=== PATIENT | male | born 1985 | race Caucasian/White ===

== ENCOUNTER 2021-01-16 08:05 | Emergency (ER) | payer BC, SELFPAY ==
[2021-01-16 08:15] VITALS: BP 139/109; PULSE 87; RESP 16; TEMP 36.8; O2SAT 100
--- NOTE | 2021-01-16 08:34 | ED.BACK ---
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 Patient states he has a shorter couple day history of right scapular shoulder pain that is mild worse with motion, better at rest and began when he awoke. No cough, shortness of breath, no midline neck pain, radiating pain, numbness/weakness, prior injury Related Data Home Medications Medication Instructions Recorded Confirmed dextroamphetamine-amphetamine PO 01/16/21 [Adderall XR] Allergies Allergy/AdvReac Type Severity Reaction Status Date / Time No Known Allergies Allergy Unknown Unverified 10/01/18 13:22 Review of Systems Review of Systems: Narrative: The patient has been informed that they may have pre-hypertension or Hypertension based on a BP reading in the department. I recommend that the patient call the primary care provider listed on their discharge instructions or a physician of their choice this week to arrange follow up for further evaluation of possible pre-hypertension or Hypertension General/Constitutional: No weight loss,fever Eyes: N0: Redness,discharge Ears/Nose/Throat: No: Epistaxis,ear discharge Respiratory: Denies: Hemoptysis Gastrointestinal: No Vomiting, Bleeding-rectal Skin: No Lumps, eruption Neurologic: No Focal Weakness,Sz Hematologic: Denies: Petechiae/Purpura Psychiatric: No: Suicida ideationl All Other Systems: Reviewed and Negative PMFSH Comments At time of signature, agree with nursing past medical, surgical, social and family history. There is no relevant family history pertinent to the presenting complaint Exam Narrative: Exam Narrative: General Appearance: Well appearing,, Conjunctiva clear Mouth/Throat: Normal appearing, Normal lips, Supple no midline tenderness Respiratory: Airway patent Musculoskeletal: Normal strength ( 5/5 : Bi/Tri, ) Spine/Back: Rhomboid muscle tender (with mild decreased range of motion; right scapular border) Skin: Normal color, nontender supraspinatus & supraspinatus mm Neurological: A&O x3, CN II-XII intact, Normal reflexes (symmetric, Bi/Tri) Psychiatric: Normal mood Course Vital Signs Vital signs: Vital Signs Temperature 98.3 F 01/16/21 08:15 Pulse Rate 87 01/16/21 08:15 Respiratory Rate 16 01/16/21 08:15 Blood Pressure 139/109 H 01/16/21 08:15 Pulse Oximetry 100 01/16/21 08:15 Temperature 98.3 F 01/16/21 08:15 Pulse Rate 87 01/16/21 08:15 Respiratory Rate 16 01/16/21 08:15 Blood Pressure 139/109 H 01/16/21 08:15 Pulse Oximetry 100 01/16/21 08:15 Discharge Plan Discharge Clinical Impression: Pain, upper back Patient Disposition: Home, Self-Care Condition: Stable Instructions: Thoracic Back Strain (ED) Prescriptions: New prednisone 20 mg tablet 60 mg PO DAILY Qty: 9 RF: 0 acetaminophen-codeine 300-30 mg tablet 1 - 2 tablet PO HS PRN (Reason: pain) Qty: 10 RF: 0 tramadol 50 mg tablet 50 mg PO TID PRN (Reason: pain) Qty: 15 RF: 1 No Action dextroamphetamine-amphetamine [Adderall XR] 30 mg capsule,extended release 24hr PO RF: 0 Follow-up/Referrals: Fortino,Pb Mota MD [Primary Care Provider] - Stand Alone Forms: Work/School Release IP
== END 2021-01-16 08:42 | disposition home or self-care (01) ==
PROVIDERS: Emergency Provider Emergency Medicine; PCP Family Medicine
DX: M54.6 Pain in thoracic spine (principal)
CPT/HCPCS: 99213; G0463

== ENCOUNTER 2024-11-17 10:48 | Outpatient (CLI) | payer BC, SELFPAY | END 2024-11-17 10:49 | disposition home or self-care (01) | PROVIDERS: PCP Physician Assistant; Visit Provider Physician Assistant | DX: R16.1 Splenomegaly, not elsewhere classified (principal) | CPT/HCPCS: 76700 ==

== ENCOUNTER 2024-11-21 12:48 | Outpatient (CLI) | payer BC, SELFPAY | END 2024-11-21 12:49 | disposition home or self-care (01) | PROVIDERS: PCP Physician Assistant; Visit Provider Physician Assistant | DX: R10.9 Unspecified abdominal pain (principal); R63.4 Abnormal weight loss | CPT/HCPCS: 71046 ==

== ENCOUNTER 2024-11-24 16:42 | Outpatient (CLI) | payer BC, SELFPAY ==
--- OUTSIDE RECORDS SUMMARY | 2024-11-24 17:05 | XMS_ITS | Referral Summary ---
Author Organization [facility] Medical Office Building [address] Address [address] [place] [address] Care Team Providers Care Medical Assistant Prn Name Role Phone Pb Freitas MD Primary Care Provider +1- [phone] Allergies No known active allergies Medications ADDERALL XR 30 mg 24 hr capsule 07/21/2018 Activ e dextroamphetamine- amphetamine (ADDERALL) 20 mg tablet 07/21/2018 Active Active Problems No known active problems Social History Tobacco Use Types Packs/Day Years Used Date Smoking Tobacco: Never Smokeless Tobacco: Never Personal Safety Answer Date Recorded Getting School Help Needed Not on file 12/05 Sex and Gender Information Value Date Recorded Sex Assigned at Not on file 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 Gender Identity Not on file Sexual Orientation Not on file Last Filed Vital Signs Vital Sign Reading Time Taken Comments Blood Pressure 150/83 12/02/2018 1:53 PM CDT Pulse 101 12/02/2018 1:53 PM CDT Temperature - - Respiratory Rate - - Oxygen Saturation - - Inhaled Oxygen Concentration - - Weight 111.1 kg (245 lb) 12/02/2018 1:53 PM CDT Height 193 cm (6' 4 ) 12/02/2018 1:53 PM CDT Body Mass Index 29.82 12/02/2018 1:53 PM CDT Plan of Treatment Not on file Insurance [employer] Care Teams Medical Assistant Prn Relationship Specialty Start Date End Date Pb Freitas MD [facility] [place] [address] PCP - General Family Medicine 08/02/18
--- OUTSIDE RECORDS SUMMARY | 2024-11-24 17:05 | XMS_ITS | Clinical Summary ---
Author Organization [facility] Address [address] [place] [phone] Phone Care Team Providers Care Insurance Account Executive Name Role Phone Provider, Unknown Primary Care Provider Unavaila ble Allergies No known active allergies Medications amphetamine-dextro amphetamine (ADDERALL XR) 30 MG CAPSULE SR 24 HR 07/21/2018 Active Active Problems No known active problems Immunizations Immunization Administration Dates Next Due Influenza, Seasonal, Injectable, Undefined 08/04 TDAP Vaccine 11/20/2015,08/04/2013 Social History Tobacco Use Types Packs/Day Years Used Date Smoking Tobacco: Never Smokeless Tobacco: Never Sex and Gender Information Value Date Recorded Sex Assigned at Not on file 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 Gender Identity Not on file Sexual Orientation Not on file Last Filed Vital Signs Vital Sign Reading Time Taken Comments Blood Pressure 128/70 09/12/2020 1:53 PM TOOL DISPATCHER Pulse 67 09/12/2020 1:53 PM TOOL DISPATCHER Temperature 36.4 C (97.6 F) 09/12/2020 1:53 PM TOOL DISPATCHER Respiratory Rate 20 08/06/2020 4:43 PM TOOL DISPATCHER Oxygen Saturation 99% 09/12/2020 1:53 PM TOOL DISPATCHER Inhaled Oxygen Concentration - - Weight - - Height - - Body Mass Index - - Plan of Treatment Health Maintenance Due Date Last Done Comments Hepatitis C Virus (HCV) Screening 1984 Hepatitis B Immunization (1 of 3 - 19+ 3-dose series) 11/28/2003 Influenza Immunization (#1) 2024 SARS-COV-2 Immunization ( season) 2024 11/23/2020 Respiratory Syncytial Virus (RSV) Immunization (Adult) (1 - 1-dose 75+ series) 11/28/2059 DTaP/Tdap/Td Immunization Discontinued 2015, 08/04/2013 Meningococcal Immunization (ACWY) Aged Out No longer eligible based on patient's age to complete this topic Pneumococcal Immunization Combined Aged Out No longer eligible based on patient's age to complete this topic Rotavirus Immunization Aged Out No lo nger eligible based on patient's age to complete this topic Insurance [facility] Care Teams Insurance Account Executive Relationship Specialty Start Date End Date Provider, Unknown UNKNOWN PCP - General 08/06/20
--- OUTSIDE RECORDS SUMMARY | 2024-11-24 17:05 | XMS_ITS | Clinical Summary ---
Author Organization [facility] Medical Office Building B Address [address] [place] [address] Care Team Providers Care Clinical Research Director Name Role Phone Pb Freitas MD Primary Care Provider +1- [phone] Allergies No known active allergies Medications ADDERALL XR 30 mg 24 hr capsule 07/21/2018 Activ e dextroamphetamine- amphetamine (ADDERALL) 20 mg tablet 07/21/2018 Active Active Problems No known active problems Surgical History Surgery Date Site/Laterality Comments TONSILECTOMY, ADENOIDECTOMY, BILATERAL MYRINGOTOMY AND TUBES Medical History Medical History Date Comments Known health problems: none ADHD (attention deficit hyperactivity disorder) Family History Medical History Relation Name Comments Cancer Other Stroke Other Relation Name Status Comments Other Social History Tobacco Use Types Packs/Day Years Used Date Smoking Tobacco: Never Smokeless Tobacco: Never Personal Safety Answer Date Recorded Getting School Help Needed Not on file 12/05 Sex and Gender Information Value Date Recorded Sex Assigned at Not on file 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
[2024-11-24 17:15] LABS: Alanine Aminotransferase 47 U/L (6-50); Albumin Level 4.9 g/dL (3.5-5.1); Alkaline Phosphatase 95 U/L (38-126); Anion Gap 9 mmol/L (4-12); Aspartate Amino Transferase 43 U/L (17-59); Bilirubin,Total 1.9 mg/dL (0.2-1.3); Blood Urea Nitrogen 15 mg/dL (9-20); CRP < 0.5 mg/dL (<1.0); Calcium 9.3 mg/dL (8.4-10.2); Carbon Dioxide 27 mmol/L (22-30); Chloride 103 mmol/L (98-107); Estimated Glomerular Filt Rate > 60; Glucose 97 mg/dL (65-110); Potassium 4.1 mmol/L (3.4-5.0); Sodium 139 mmol/L (137-145)
[2024-11-24 17:21] LABS: Prothrombin Time 13.1 Seconds (11.1-14.7)
[2024-11-24 17:35] LABS: Erythrocyte Sedimentation Rate 5 mm/hr (0-20)
[2024-11-28 14:48] LABS: Immunoglobulin A 155 mg/dL (47-310); TTG IGA AB <1.0 U/mL
== END 2024-11-24 16:43 | disposition home or self-care (01) ==
LOC: ANHLAB 16:43
PROVIDERS: PCP Physician Assistant; Visit Provider Nurse Practitioner
DX: R63.4 Abnormal weight loss (principal); R68.81 Early satiety; R63.0 Anorexia
CPT/HCPCS: 36415; 80053; 82248; 82784; 84443; 85610; 85652; 86038; 86039; 86140; 86364

== ENCOUNTER 2024-11-25 13:31 | Outpatient (NON) | payer BC, SELFPAY ==
--- OUTSIDE RECORDS SUMMARY | 2024-11-25 13:47 | XMS_ITS | Clinical Summary ---
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 Gender Identity Not on file Sexual Orientation Not on file Last Filed Vital Signs Vital Sign Reading Time Taken Comments Blood Pressure 128/70 09/12/2020 1:53 PM GRAIN OILSEED OR PASTURE FARM WORKER Pulse 67 09/12/2020 1:53 PM GRAIN OILSEED OR PASTURE FARM WORKER Temperature 36.4 C (97.6 F) 09/12/2020 1:53 PM GRAIN OILSEED OR PASTURE FARM WORKER Respiratory Rate 20 08/06/2020 4:43 PM GRAIN OILSEED OR PASTURE FARM WORKER Oxygen Saturation 99% 09/12/2020 1:53 PM GRAIN OILSEED OR 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
--- OUTSIDE RECORDS SUMMARY | 2024-11-25 13:47 | XMS_ITS | Referral Summary ---
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
--- OUTSIDE RECORDS SUMMARY | 2024-11-25 13:47 | XMS_ITS | Clinical Summary ---
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
== END 2024-11-25 13:32 | disposition home or self-care (01) ==
LOC: ANHLAB 13:31
PROVIDERS: PCP Physician Assistant; Visit Provider Nurse Practitioner
DX: R63.4 Abnormal weight loss (principal); R68.81 Early satiety; R63.0 Anorexia
CPT/HCPCS: 82653; 83993; 87045; 87177; 87209; 87269; 87427; 87449

== ENCOUNTER 2024-12-02 13:17 | Outpatient (CLI) | payer BC, SELFPAY ==
--- NOTE | ~2024-12-02 | CT_ITS ---
Clinical Indication: Abnormal weight loss CT Scan of the Chest, Abdomen, and Pelvis with Contrast: Technique: Contiguous sections were acquired throughout the chest, abdomen, and pelvis after intraven ous administration of 100 cc of Omnipaque 350. Dose reduction technique was used on this scan by magalys sidhu automated exposure control and iterative reconstruction technique. The dose-length product (DL P) was 1029.57 mGy-cm. Findings: There is no evidence of any significant mediastinal, hilar or axillary lymphadenopathy. The mediastin al soft tissues appear normal. There is no evidence of pleural or pericardial effusion. The lungs are clear. No pulmonary nodules or infiltrates are noted. The liver, spleen, pancreas, gallbladder, adrenals and kidneys are within normal limits. No evidence of aortic aneurysm. No lymphadenopathy. Questionable mild wall thickening descending and sigmoid colon versus underdistention. No bowel obstr uction. No abscess. Urinary bladder is unremarkable. No pelvic mass seen. No ascites. Impression: Questionable mild wall thickening descending and sigmoid colon versus underdistention. Correlate for any possibility of infectious/inflammatory colitis. Reviewed, dictated and finalized at [facility]. Impression: Questionable mild wall thickening descending and sigmoid colon versus underdist ention. Correlate for any possibility of infectious/inflammatory colitis.
[2024-12-02 13:40] LABS: Estimated Glomerular Filt Rate > 60
== END 2024-12-02 13:18 | disposition home or self-care (01) ==
LOC: GOSHIMG 13:18
PROVIDERS: PCP Nurse Practitioner; Visit Provider Nurse Practitioner
DX: R63.4 Abnormal weight loss (principal); R68.81 Early satiety; R63.0 Anorexia
CPT/HCPCS: 71260; 74177; Q9967

== ENCOUNTER 2024-12-12 01:17 | Day surgery (SDC) | payer BC, SELFPAY ==
[2024-12-07 13:38] VITALS: BMI 23.8
--- OUTSIDE RECORDS SUMMARY | 2024-12-12 01:20 | XMS_ITS | Clinical Summary ---
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
--- OUTSIDE RECORDS SUMMARY | 2024-12-12 01:20 | XMS_ITS | Data Portability ---
Author Organization [facility] [employer] [facility], Main Office Address [address] [place] [address] Assessment No assessment recorded. Plan of Treatment Reminders Order Date Submit Date Provider Last Modified By Organization Details Last Modified Time Details Appointments None recorded. Lab amylase + lipase, serum [address] (Lab), [address] [place], [address], 5 11:10:17 CMP, serum or plasma 2024 025 [facility] (Lab), [address] [place], [address], 5 22:02:38 lipase, serum or plasma 2024 025 [facility] (Lab), [address] [place], [address], 5 22:02:43 hemoglobin A1C, fingerstic k 2024 025 [facility], [address] [place] [address], [address], 5 14:21:16 CMP, serum or plasma [address] (Lab), [address] [place], [address], 5 11:10:16 T4, free, serum 2024 025 [facility] (Lab), [address] [place], [address], 5 22:02:41 TSH, serum or plasma [address] (Lab), [address] [place], [address], 5 11:10:16 CBC w/ auto diff 2024 025 [facility] (Lab), [address] [place], [address], 5 22:02:39 urinalysis , dipstick, reflex micro [address] (Lab), [address] [place], [address], 5 11:10:17 glucose, fingerstic k, blood [address] [facility], [address] [place], [address], 5 11:10:17 amylase, serum or plasma 2024 025 [facility] (Lab), [address] [place], [address], 5 22:02:42 vitamin D3, 25-hydroxy , serum [address] (Lab), [address] [place], [address], 4 08:08:14 vitamin B12 + folate, serum or blood [address] (Lab), [address] [place], [address], 4 08:08:14 TSH, serum or plasma [address] (Lab), [address] [place], [address], 4 08:08:13 vitamin D, 25-hydroxy , total, serum [address] (Lab), [address] [place], [address], 4 08:08:13 lipid panel, serum 2023 024 [facility] (Lab), [address] [place], [address], 4 09:54:47 CMP, serum or plasma [address] (Lab), [address] [place], [address], 4 08:08:13 CK (creatine kinase), total, serum [address] (Lab), [address] [place], [address], 4 08:08:13 CBC w/ auto diff [address] (Lab), [address] [place], [address], 4 08:08:13 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 Please eval and treat. Thank you..famil y history pancreatic cancer. Please call patient to schedule an appointmen t. Thank you. 2024 025 NOLVIA Maldonado MD, [address] [facility] [address], [place], [address], 5 11:02:41 Procedures None recorded. Surgeries None recorded. Imaging US, abdomen [address] (Imaging), [address] [facility] [address], [place], [address], 5 12:41:18 XR, chest, 2 view [address] (Imaging), [address] [facility], [place], [address], 5 16:13:57 XR, chest, 2 view [id number] (Imaging), [address] [facility] [address], [place], [address], 4 08:51:42 Medication Orders Adderall XR 30 mg capsule,ex tended release 2024 025 [facility], [address] [place], [address], 5 15:17:55 Adderall 20 mg tablet 2024 025 [facility] [address], [address] [place], [address], 5 15:17:54 amlodipine 2.5 mg tablet [email or web address] [facility] [address], [address] [place], [address], 5 12:31:57 cyanocobal eden (vit B-12) 1,000 mcg sublingual tablet 2024 025 [facility] [address], [address] [place], [address], 5 16:10:57 losartan 100 mg tablet 2023 024 [facility][id number], [address] [place], [place], [id number], 15:53:07 amlodipine 2.5 mg tablet 2023 [facility] #[id number], [address] [facility], [place], [id number], 15:53:06 Adderall 20 mg tablet 2023 [facility]28045, [address] [facility], [place], [place], [id number], 15:56:57 losartan 100 mg tablet 2023 [facility] [address], [address] [place], [address], 13:00:29 Patient TargetsNo targets recorded. Patient Instructions Encounter Date Encounter Id Patient Instructions Last Modified By Organization Details Last Modified Time 03/15/2024 [id number] recheck BP on ow n ; reviewed salty foods to avoid , walk, which he does [email or web address] Not available 03/20/2024 17:12:21 07/21/2024 [id number] He will check BP at work and at home . has been taking BP pills at night , felt cold at work when he took them in the mornings , but misses a lot of doses ........ [email or web address] Not available 07/21/2024 16:02:08 10/25/2024 [id number] recheck BP on own [email or web address] Not avai lable 10/28/2024 22:47:20 11/15/2024 [id number] wear a jock stra p . no heavy lifting . 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 Please eval and treat. Thank you..family history pancreatic cancer. Please call patient to schedule an appointment. Thank you. Referring Physician: Goyo Richardson, Family Medicine, Encounter Date: 11/15/2024 Results Created Date Observation Date Name Description Value Unit Range Abnormal Flag Note LastModifiedBy Organization Detail LastModifiedTime 08/06/2008/07/2023 LIPID PANEL (REFL ) cholesterol, total 171 mg/dL <200 normal Not Available [address] [address] [place], [address], 08/07/2023 07:24:54 08/06/20 23 08/07/2023 LIPID PANEL (REFL ) HDL cholesterol 55 mg/dL > or = 40 normal Not Available [facility] [address] [address] [place], [address], 08/07/2023 07:24:54 08/06/2008/07/2023 LIPID PANEL (REFL ) triglyceride s 83 mg/dL <150 normal Not Available [address] [address] [place], [address], 08/07/2023 07:24:54 08/06/20 23 08/07/2023 LIPID PANEL (REFL ) LDL-choleste rol 99 mg/dL _(millicent c) normal Refer ence range : <100 Teresa able range <100 mg/dL for prima ry preve ntion ; <70 mg/dL for patie nts with CHD or diabe tic patie nts with > or = 2 CHD risk facto rs. LDL-C is now calcu lated using the [facility]ange n[facility] kins kenanu jhonatan n, which is a valid ated novel teeo ilana renteria r accur acy than the Fried juarez equat ion in the estim ation of LDL-C . Solange barone SS et al. NIC. 2013; 310(1 9): 2061- 2068 (http ://ed ucati on.Qu Tahira viramontesFlurrys. com/f aq/FA Q164) Not Available [facility] [address] [address] , [place], [address], 08/07/2023 07:24:54 08/06/20 23 08/07/2023 LIPID PANEL (REFL ) chol/HDLC ratio 3.1 (calc ) <5.0 normal Not Available [facility] [address] [address] [place], [address], 08/07/2023 07:24:54 08/06/2008/07/2023 LIPID PANEL (REFL ) non HDL cholesterol 116 mg/dL _(millicent c) <130 normal For patie nts with diabe michael plus 1 major ASCVD risk facto r, treat ing to a non-H DL-C goal of <100 mg/dL (LDL- C of <70 mg/dL ) is consi dered a thera peuti c optio n. Not Available [address], [address], 08/07/2023 07:24:54 08/06/2008/07/2023 COMPR EHENS BREE METAB OLIC PANEL glucose 93 mg/dL 65-99 normal Fasti ng refer ence inter migel Not Available [address], [address], 08/07/2023 07:24:55 08/06/20 23 08/07/2023 COMPR EHENS BREE METAB OLIC PANEL urea nitrogen (BUN) 9 mg/dL 7-25 normal Not Available [address], [address], 08/07/2023 07:24:55 08/06/20 23 08/07/2023 COMPR EHENS BREE METAB OLIC PANEL creatinine 1.01 mg/dL 0.60-1 .26 normal Not Available [address], [address], 08/07/2023 07:24:55 08/06/20 23 08/07/2023 COMPR EHENS BREE METAB OLIC PANEL eGFR 98 mL/mi n/1.7 3m2 > or = 60 normal Not Available [address] [address] [place], [address], 08/07/2023 07:24:55 08/06/20 23 08/07/2023 COMPR EHENS BREE METAB OLIC PANEL BUN/creatini ne ratio SEE NOTE: (calc ) 6-22 Not Repor esequiel: BUN and Creat inine are withi n refer ence range . Not Available [address] [address] [place], [address], 08/07/2023 07:24:55 08/06/20 23 08/07/2023 COMPR EHENS BREE METAB OLIC PANEL sodium 140 mmol/ L 135-14 6 normal Not Available [address] [address] [place], [address], 08/07/2023 07:24:55 08/06/20 23 08/07/2023 COMPR EHENS BREE METAB OLIC PANEL potassium 4.2 mmol/ L 3.5-5. 3 normal Not Available [address], [address], 08/07/2023 07:24:55 08/06/20 23 08/07/2023 COMPR EHENS BREE METAB OLIC PANEL chloride 104 mmol/ L 98-110 normal Not Available [address] [address] [place], [address], 08/07/2023 07:24:55 08/06/20 23 08/07/2023 COMPR EHENS BREE METAB OLIC PANEL carbon dioxide 29 mmol/ L 20-32 normal Not Available [address], [address], 08/07/2023 07:24:55 08/06/20 23 08/07/2023 COMPR EHENS BREE METAB OLIC PANEL calcium 9.3 mg/dL 8.6-10 .3 normal Not Available [address], [address], 08/07/2023 07:24:55 08/06/20 23 08/07/2023 COMPR EHENS BREE METAB OLIC PANEL protein, total 6.9 g/dL 6.1-8. 1 normal Not Available [facility] [address] [address] [place], [address], 08/07/2023 07:24:55 08/06/2008/07/2023 COMPR EHENS BREE METAB OLIC PANEL albumin 4.6 g/dL 3.6-5. 1 normal Not Available [address] [address] [place], [address], 08/07/2023 07:24:55 08/06/20 23 08/07/2023 COMPR EHENS BREE METAB OLIC PANEL globulin 2.3 g/dL_ (calc ) 1.9-3. 7 normal Not Available [address] [address] [place], [address], 08/07/2023 07:24:55 08/06/20 23 08/07/2023 COMPR EHENS BREE METAB OLIC PANEL albumin/glob ulin ratio 2.0 (calc ) 1.0-2. 5 normal Not Available [address] [address] [place], [address], 08/07/2023 07:24:55 08/06/2008/07/2023 COMPR EHENS BREE METAB OLIC PANEL bilirubin, total 1.5 mg/dL 0.2-1. 2 high Not Available [address] [address] [place], [address], 08/07/2023 07:24:55 08/06/20 23 08/07/2023 COMPR EHENS BREE METAB OLIC PANEL alkaline phosphatase 70 U/L 36-130 normal Not Available [facility] ID.me [address] [address] [place], [address], 08/07/2023 07:24:55 08/06/20 23 08/07/2023 COMPR EHENS BREE METAB OLIC PANEL AST 21 U/L 10-40 normal Not Available [address] [address] [place], [address], 08/07/2023 07:24:55 08/06/20 23 08/07/2023 COMPR EHENS BREE METAB OLIC PANEL ALT 29 U/L 9-46 normal Not Available [facility] [address] [place], [address], 08/07/2023 07:24:55 11/15/19 25 11/15/2024 hemog lobin A1C, finge rstic k HgbA1C 5.7 Not Available [facility] [address] [facility] [address] [facility], [place], [address], 11/15/2024 12:38:00 04/22/20 24 04/22/2024 XR, chest , 2 view No observ ation record ed. [email or web address] [facility] [address] [place], [address], 06/16/2024 16:14:30 11/17/19 25 11/17/2024 US, abdom en, compl ete No observ ation record ed. [email or web address] [facility] [address] [address], [place], [address], 11/29/2024 16:13:15 11/17/19 25 11/17/2024 US, abdom en, compl ete No observ ation record ed. [email or web address] [facility] [address] [place] [address], [place], [address], 11/22/2024 16:53:13 Result Notes None recorded. Problems Name Problem SNOMED Code Status Onset Date Resolution Date Notes Provider Name and Address Organization Details Recorded Time Biceps tendiniti s 953835929 Active Not Available [facility] 3 15:47:04 Undiffere ntiated attention deficit disorder 60732276 Active Not Available [facility] 3 15:47:04 Gastroeso phageal reflux disease 724825684 Active Not Available [facility] 3 15:47:04 Attention deficit hyperacti vity disorder, predomina ntly inattenti ve type 79041965 Active Not Available [facility] 3 15:47:04 Attention deficit hyperacti vity disorder 027868064 Active Not Available [facility] 3 15:47:04 Adult attention deficit hyperacti vity disorder 997800834 Active Not Available [facility] 3 15:47:04 Hypoglyce blayne 694749778 Active 2022 Not Available [facility] 3 15:47:04 Acid reflux 646475197 Active 2022 Pb Freitas MD [address], [address], [place], [address] , [employer] 3 12:05:59 Hyperlipi demia 26435129 Active 2022 Pb Freitas MD [address], [address], [place], [address] , [employer] 3 12:25:13 Tuberculo sis screening Active 2023 FRIEDA Gallego [address], [address], [place], [address] , [employer] 4 12:54:35 Essential hypertens ion 99193437 Active 2023 FRIEDA Gallego [address], [address], [place], [address] , [employer] 4 12:56:03 Dysfuncti on of bilateral eustachia n tubes 10165392108 09702 Active 2023 FRIEDA Gallego [address], [address], [place], [address] , [employer] 4 17:11:09 Unintenti onal weight loss 018208157 Active 2023 FRIEDA Gallego [address], [address], [place], [address] , [employer] 4 15:48:25 At increased risk for nutrition al problem 065780135 Active 2023 FRIEDA Gallego [address], [address], [place], [address] , [facility] [employer] [facility] [employer] 4 15:54:53 Vitamin B12 level below reference range 320712387 Active 2023 FRIEDA Gallego [address], [address], [place], [address] , [facility] [employer] [facility] [employer] [facility] 4 12:26:17 Serum vitamin B12 below reference range 620500152 Active 2024 FRIEDA Gallego [address], [address], [place], [address] , [facility] [employer] [facility] [employer] [facility] 5 16:09:47 Abnormal weight 32110729 Active 2024 Joselin Hunter RN [facility] [place] [employer] [facility] [employer] [facility] 5 12:30:43 Abdominal pain 15062045 Active 2024 FRIEDA Gallego [address], [address], [place], [address] , [facility] [employer] [facility] [employer] [facility] 5 12:43:33 Right inguinal hernia 063261361 Active 2024 self reducing FIREDA Gallego [address], [address], [place], [address] , [employer] [facility] [employer] [facility] 5 12:58:54 Splenomeg olga 94847165 Active 2024 FRIEDA Gallego [address], [address], [place], [address] , [facility] [employer] [facility] [employer] [facility] 5 10:23:20 Problem Notes None recorded. Procedures Surgical History None recorded. Imaging Results Imaging Date Name Status LastModified by Organiz [facility] Details LastModified Time 04/22/2024 XR, chest, 2 view completed [email or web address] [facility], [place], [address], 06/16/2024 16:14:30 11/17/2024 US, abdomen, complete active [address] [facility] [address] [facility] [address], [place], [address], 11/29/2024 16:13:15 11/17/2024 US, abdomen, complete completed [email or web address] [facility] [address] [facility] [address], [place], [address], 11/22/2024 16:53:13 Procedure Notes None recorded. Medical Equipment None Reported. Allergies No known drug allergies Medications Name Sig Start Date Stop Date Status Note LastModified by Organization Details LastModified Time azithromy luna 250 mg tablet TAKE 2 TABLETS BY MOUTH TODAY, THEN TAKE 1 TABLET DAILY FOR 4 DAYS active Not Available Not Available No t Available benzonata te 200 mg capsule Take 1 capsule 3 times a day by oral route as needed. active Not Available Not Available No t Available bacitraci n 500 unit/gram eye ointment 08/24 completed Not Available Not Available Not Available promethaz ine 25 mg rectal supposito ry Insert 1 supposit ory 3 times a day by rectal route. active Not Available Not Available No t Available Tubersol 5 tub. unit/0.1 mL intraderm al injection solution Inject 0.1 mL by intrader mal route. 08/24 completed Not Available Not Available Not Available amlodipin e 2.5 mg tablet Take 1 tablet every day by oral route for 30 days. 2024 active Not Available Not Available Not Avai lable omeprazol e 40 mg capsule,d elayed release Take 1 capsule every day by oral route active Not Available Not Available No t Available triamcino lone acetonide 0.1 % topical cream Apply 1 applicat ion twice a day by topical route for 30 days. active Not Available Not Available No t Available ofloxacin 0.3 % ear drops INSTILL 5 DROP IN AFFECTED EAR TWICE DAILY FOR 7 DAYS 03/15 completed Not Available Not Available Not Available cephalexi n 500 mg capsule 08/24 completed Not Available Not Available Not Available pantopraz ole 40 mg tablet,de layed release TAKE 1 TABLET BY MOUTH EVERY DAY 11/15 completed reports not taking Not Available Not Available Not Available oseltamiv ir 75 mg capsule TK 1 C PO QD FOR 10 DAYS 10/22 completed Not Available Not Available Not Available clotrimaz ole-betam ethasone 1 %-0.05 % topical cream APPLY TOPICALL Y TO THE AFFECTED AND SURROUND ING AREAS TWICE DAILY IN THE MORNING AND IN THE EVENING FOR 2 WEEKS 12/31 completed Not Available Not Available Not Available dextroamp hetamine- amphetami ne 20 mg tablet Take 1 tablet every day by oral route. active Not Available Not Available No t Available prednison e 50 mg tablet 08/24 completed Not Available Not Available Not Available cyanocoba maicol (vit B-12) 1,000 mcg sublingua l tablet Place 1 tablet twice a day by sublingu al route for 30 days. 2024 active Not Available Not Available Not Avai lable dextroamp hetamine- amphetami ne ER 30 mg 24hr capsule,e xtend release TAKE 1 CAPSULE BY MOUTH EVERY DAY active Not Available Not Available No t Available losartan 100 mg tablet TAKE 1 TABLET BY MOUTH EVERY DAY IN THE MORNING active Not Available Not Available No t Available Amphetami ne Salt Combo 20 mg tablet TAKE 1 TABLET active Not Available Not Available No t Available Boostrix Tdap 2.5 Lf unit-8 mcg-5 Lf/0.5 mL intramusc ular syringe 08/24 completed Not Available Not Available Not Available [employer]NOW COVID-19 Ag Self Test kit TEST DIRECTED TODAY 12/31 completed Not Available Not Available Not Available Vitals Date Recorded Body height Body mass index (BMI) Body weight Body temperature Heart rate Oxygen saturation Oxygen saturation in Arterial blood by Pulse oximetry Systolic blood pressure Diastolic blood pressure Provider Name and Address Organization Details Last Updated DateTime 3 193.04 cm 27.6 kg/m2 908158. 47 g 98 [degF] 96 /min 99 % 99 % 132 mm[Hg] 84 mm[Hg] Phoebe Pinto [place] [facility] [employer] 3 16:16:34 Date Recorded Body height Body mass index (BMI) Body weight Body temperature Heart rate Oxygen saturation Oxygen saturation in Arterial blood by Pulse oximetry Respiratory rate Systolic blood pressure Diastolic blood pressure Systolic blood pressure Diastolic blood pressure Provider Name and Address Organization Details Last Updated DateTime 4 193.04 cm 26.3 kg/m2 16130.9 5 g 98.3 [degF] 103 /min 99 % 99 % 16 /min 160 mm[Hg] 110 mm[Hg] 152 mm[Hg] 102 mm[Hg] Judith Neff RN [facility] [employer] [facility] 4 12:42:39 Date Recorded Body height Body mass index (BMI) Body weight Body temperature Heart rate Oxygen saturation Oxygen saturation in Arterial blood by Pulse oximetry Systolic blood pressure Diastolic blood pressure Provider Name and Address Organization Details Last Updated DateTime 4 193.04 cm 25.6 kg/m2 84906.4 g 98.3 [degF] 102 /min 99 % 99 % 128 mm[Hg] 102 mm[Hg] Judith Neff RN [facility] [employer] [facility] 4 15:39:34 Date Recorded Body height Body mass index (BMI) Body weight Body temperature Heart rate Oxygen saturation Oxygen saturation in Arterial blood by Pulse oximetry Systolic blood pressure Diastolic blood pressure Provider Name and Address Organization Details Last Updated DateTime 5 193.04 cm 26.1 kg/m2 75996.8 4 g 98.1 [degF] 92 /min 97 % 97 % 130 mm[Hg] 88 mm[Hg] Joselin Hunter RN [facility] [employer] [facility] 5 15:56:54 Date Recorded Body height Body mass index (BMI) Body weight Body temperature Heart rate Oxygen saturation Oxygen saturation in Arterial blood by Pulse oximetry Systolic blood pressure Diastolic blood pressure Provider Name and Address Organization Details Last Updated DateTime 5 193.04 cm 24.3 kg/m2 68209.7 6 g 97.9 [degF] 98 /min 98 % 98 % 136 mm[Hg] 94 mm[Hg] Joselin Hunter RN [facility] [employer] [facility] 5 12:33:59 Social History Question Answer Notes LastModified by Organizat ion Details LastModified Time Tobacco Smoking Status Never Smoker Judith Neff RN [facility] [employer] [facility] 03/15/2024 12:38:44 What Is Your Level Of Alcohol Consumption? Occasional Information not available 03/15/2024 What Is Your Level Of Caffeine Consumption? Occasional Information not available 03/15/2024 Sex: Unknown Functional Status None recorded. Mental Status None recorded. Family History Nothing Reported. Medical History No medical history recorded. Past Encounters Encounter ID Performer Location Encounter Start Date Encounter Closed Date Diagnosis/Indication Diagnosis SNOMED-CT Code Diagnosis ICD10 Code Diagnosis Note [id number] [facility] [place] [address] 01/24/2022 00:00:00 01/25/2022 18:26:21 [id number] [facility] [place] [place] [address] 07/09/2022 00:00:00 07/09/2022 18:56:41 [id number] [facility] [place] [place] [address] 07/28/2022 00:00:00 07/28/2022 14:57:04 [id number] Pb Freitas MD [facility] [address] [facility] [place] [address] 12/31/2022 17:02:34 01/01/2023 07:48:26 History of inactive tuberculosis 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 [id number] Pb Freitas MD [facility] [address] [facility] [place] [address] 02/19/2023 15:56:36 02/19/2023 16:20:12 Adult health examination 351577073 Z00.00 Hypoglycemia 394815072 E 16.2 Eat Q 2 hours [id number] FRIEDA Gallego [facility] [place] [facility] [place] [address] 09/02/2023 16:08:36 09/02/2023 16:47:26 Acid reflux 642896558 K21.9 Attention deficit hyperactivity disorder, predominantly inattentive type 21269447 F90.0 Hyperlipidemia 73682606 E78.5 Hypoglycemia 175695506 E 16.2 [id number] FRIEDA Gallego [facility] [place] [address] [facility] [place] [address] 03/15/2024 12:21:34 03/15/2024 12:58:27 Tuberculosis screening 519192378 Z11.7 Essential hypertension 02505072 I10 Attention deficit hyperactivity disorder, predominantly inattentive type 25518209 F90.0 Dysfunctio n of bilateral eustachian tubes 5615503497 204764 H69.93 [id number] FRIEDA Gallego [facility] [place] [address] [facility] [place] [address] 07/21/2024 15:28:47 07/21/2024 15:58:21 Unintentional weight loss 098071006 R63.4 Essential hypertension 08476111 I10 Hyperlipidemia 53492294 E78.5 At [facility] ed risk for nutritional problem 196455781 Z91.89 Attention deficit hyperactivity disorder, predominantly inattentive type 31845357 F90.0 Gastroesop hageal reflux disease 989142895 K21.9 Vitamin B1 2 level below reference range 923481208 R79.9 [id number] FRIEDA Gallego [facility] [place] [address] [place] [address] 10/25/2024 15:46:27 10/25/2024 16:15:29 Essential hypertension 84419407 I10 Vitamin B1 2 level below reference range 937315679 R79.9 Gastroesop hageal reflux disease 141679392 K21.9 [id number] FRIEDA Gallego [facility] [place] [address] [place] [address] 11/15/2024 12:28:02 11/15/2024 12:53:13 Abnormal weight 53748102 R63.4 Unintentio nal weight loss [id number] R63.4 Abdominal pain 96430467 R10.9 Right inguinal hernia 23 8975177 K40.90 self reducing Attention deficit hyperactivity disorder, predominantly inattentive type 22617763 F90.0 Health Concerns Section Related Observation LastModified by Organization Detai ls LastModified Time None Recorded Concern Status LastModified by Organization Details LastModified Time None Recorded Advance Directives Directive None Recorded Payers Encounter Date Sequence Insurance Name Policy Number Policy Beverly Covered Member ID Beverly Member ID Guarantor Name 09/02/2023 1 [place] [id number] Niko Daniela Salazar [id number] Niko Salazar 03/15/2024 1 [place] [id number] Niko Salazar [id number] Niko Sosaton 07/21/2024 1 [place] [id number] Niko Salazar [id number] Niko Salazar 10/25/2024 1 [place] [id number] Niko Salazar [id number] Niko Salazar 11/15/2024 1 [place] [id number] Niko Salazar [id number] Niko Salazar Notes Date Note Type Note Provider Name and Address Organization Details Recorded Time 09/02/2023 text/html Here for f/u FRIEDA Gallego [address], [address], [place], [address], [employer] 09/14/2023 18:08:37 03/15/2024 text/html right ear fullnesss FRIEDA Gallego [address], [place], [address], [employer] 03/20/2024 17:12:28 07/21/2024 text/html missing doses of BP meds. headaches temples ; excedrin migraine works FRIEDA Gallego [address], [address], [place], [address], [employer] 08/15/2024 16:32:08 10/25/2024 text/html is not taking th e 2.5 mg dose of amlodipine . FRIEDA Gallego [address], [address], [place], [address], [place] [employer] 10/28/2024 22:47:37 11/15/2024 text/html worried about hi s weight . some pulling on right testicle , it is sitting higher than left . Under a lot of stress at work . FRIEDA Gallego [address] [place] [address], [facility] [address], [place], [address], [employer] 11/21/2024 09:29:18
--- OUTSIDE RECORDS SUMMARY | 2024-12-12 01:20 | XMS_ITS | Clinical Summary ---
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 Gender Identity Not on file Sexual Orientation Not on file Last Filed Vital Signs Vital Sign Reading Time Taken Comments Blood Pressure 128/70 09/12/2020 1:53 PM ABSORBER OPERATOR Pulse 67 09/12/2020 1:53 PM ABSORBER OPERATOR Temperature 36.4 C (97.6 F) 09/12/2020 1:53 PM ABSORBER OPERATOR Respiratory Rate 20 08/06/2020 4:43 PM ABSORBER OPERATOR Oxygen Saturation 99% 09/12/2020 1:53 PM ABSORBER OPERATOR Inhaled Oxygen Concentration - - Weight - - Height - - Body Mass Index - - Plan of Treatment Health Maintenance Due Date Last Done Comments Hepatitis C Virus (HCV) Screening 1984 Hepatitis B Immunization (1 of 3 - 19+ 3-dose series) 11/28/2003 Influenza Immunization (#1) 2024 08/04/2013 SARS-COV-2 Immunization ( season) 2024 11/23/2020 Respiratory [...] patient's age to complete this topic Insurance [facility] Care Teams Director Title Relationship Specialty Start Date End Date Provider, Unknown UNKNOWN PCP - General 08/06/20
--- OUTSIDE RECORDS SUMMARY | 2024-12-12 01:20 | XMS_ITS | Clinical Summary ---
Author Organization [facility] Wild zuñiga Nalle[place] Address [address] [place] [address] Care Team Providers Care Environmental Program Manager Name Role Phone Unavailable Primary Care Provider Unavailabl e Social History Tobacco Use Types Packs/Day Years Used Date Smoking Tobacco: Never Assessed Sex and Gender Information Value Date Recorded Sex Assigned at Not on file Legal Sex Male 12:28 PM CDT Gender Identity Not on file Sexual Orientation Not on file Plan of Treatment Upcoming Encounters Date Type Department Care Team (Late st Contact Info) Description 01/12/2025 1:30 PM CDT Office Visit [facility] Oncology and Hematology - Dylan [address] [place] [address] Deborah Whatley MD [address] [place] [address] Health Maintenance Due Date Last Done Comments DTAP/TDAP/TD VACCINES (1 - Tdap) 11/28/2003 HEPATITIS B VACCINES (1 of 3 - 19+ 3-dose series) 11/28/2003 INFLUENZA VACCINE (#1) 2024 HPV VACCINES Aged Out No longer eligi ble based on patient's age to complete this topic Insurance BCBS BLUE ACCESS/TRUE BLUE PPO
--- OUTSIDE RECORDS SUMMARY | 2024-12-12 01:20 | XMS_ITS | Referral Summary ---
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
[2024-12-12 08:53] VITALS: BP 117/83; PULSE 85; RESP 18; TEMP 36.6; O2SAT 100
--- NOTE | 2024-12-12 09:02 | WPDANESEPPF ---
Anes - Initial Pre Proc Eval Procedure: Operation Date: 12/12/24 10:00 Proposed Procedures p Esophagogastroduodenoscopy & Colonoscopy - Fredy Ayers MD Date/Time: 12/12/24 09:02 Surgeon: Fredy Ayers MD Pre Op Diagnosis: abnormal weight loss Patient Data Age: 39 Gender: M Height: 1.96 m Weight: 91.1 kg Last Vital Signs Temp 97.8 F 12/12/24 08:53 Pulse 85 12/12/24 08:53 Resp 18 12/12/24 08:53 BP 117/83 12/12/24 08:53 Pulse Ox 100 12/12/24 08:53 O2 Del Method Room Air 12/12/24 08:53 Allergies Allergy/AdvReac Type Severity Reaction Status Date / Time No Known Allergies Allergy Unknown Unverified 12/12/24 08:46 Home Medications ?Medication ?Instructions ?Recorded ?Confirmed ?Type dextroamphetamine-amphetamine ER 30 mg PO DAILY 01/16/21 12/07/24 History 30 mg 24hr capsule,extend release (Adderall XR) dextroamphetamine-amphetamine 20 20 mg PO DAILY 12/07/24 12/07/24 History mg tablet pantoprazole 20 mg tablet,delayed 20 mg PO QAM 12/07/24 12/07/24 History release (Protonix) amlodipine 2.5 mg tablet 2.5 mg PO DAILY 12/09/24 12/09/24 History Patient hx anesthesia problems: none Family hx anesthesia problems: none Results Review: All pre-operative results and documents have been reviewed as part of the pre-operative evaluation. [facility] Social History Social History Smoking status: Never smoker Alcohol intake: current Drinks per week: 2 Substance use type: does not use Living arrangements: with family Spiritual care concerns: No Anes - Eval Final PreProcedure Day of Procedure 12/12/24 09:02 Patient weight: normal Lungs: normal air movement Airway: Mallampati scale class II Neurological: alert and oriented Last oral intake: >/= 8 hours ASA classification: II Emergent: no Anesthetic plan: proceed Anesthesia type and monitoring: general GIVS and standard monitoring Results Review: All pre-operative results and documents have been reviewed as part of the pre-operative evaluation. HTN, RYAN but no CPAP since ENT sx. Pt overall quite active, some wt loss recently for EGD/colonoscopy. Informed Consent: The patient's anesthetic plan and its attendant risks and benefits were discussed with the patient/family/POA. Questions were solicited and answers provided to the satisfaction of the patient/family/POA.
[2024-12-12] MEDS: LACTATED RINGERS 1,000 ML 150 ML IV CONT (09:04)
--- NOTE | 2024-12-12 09:38 | WPDHPUPDATE1 ---
History and Physical Update Update Date/Time: 12/12/24 09:38 History and Physical has been reviewed, including an updated exam of the patient. There are NO changes in the patient's condition. Risks, benefits, and alternatives have been discussed and questions answered. Patient agrees to proceed with procedure.
--- NOTE | 2024-12-12 09:55 | SUR.OPER ---
EGD: end 950, COLON: start 954
[2024-12-12 10:07] VITALS: BP 102/70; PULSE 69; RESP 18; O2SAT 100
[2024-12-12 10:17] VITALS: BP 108/71; PULSE 67; RESP 18; O2SAT 100
[2024-12-12 10:27] VITALS: BP 105/74; PULSE 66; RESP 18; O2SAT 100
== END 2024-12-12 10:40 | disposition home or self-care (01) ==
PROVIDERS: PCP Physician Assistant; Referring Provider Nurse Practitioner; Visit Provider Internal Medicine Gastroenterology
PROC: 0DJ08ZZ Inspection of Upper Intestinal Tract, Via Natural or Artificial Opening Endoscopic (ICD-10-PCS; CPT 45378; principal; 2024-12-12 10:00)
DX: K29.70 Gastritis, unspecified, without bleeding (principal); K31.89 Other diseases of stomach and duodenum; K21.9 Gastro-esophageal reflux disease without esophagitis; R63.4 Abnormal weight loss; Z68.23 Body mass index [BMI] 23.0-23.9, adult
CPT/HCPCS: 45378; 43239; 88305; J2704; J7120

== ENCOUNTER 2025-01-10 16:07 | Outpatient (CLI) | payer BC, SELFPAY ==
[2025-01-10 16:29] LABS: Immature Reticulocyte Fraction 2.7 % (3.0-15.9); Reticulocyte Hemoglobin Conten 34.9 pg (28.2-36.6); Reticulocyte Percent 1.42 % (0.7-4.3); Reticulocytes Absolute 0.07 10^6/uL (0.02-0.10)
[2025-01-10 16:45] LABS: Lactate Dehydrogenase 174 U/L (120-246)
[2025-01-10 17:27] LABS: Hepatitis B Surface Antigen Negative (Negative)
[2025-01-10 17:33] LABS: HAV RESULT Negative (Negative); Hepatitis B Core IgM Result Negative (Negative)
[2025-01-10 17:45] LABS: Hepatitis C Virus Antibody Negative (Negative)
--- OUTSIDE RECORDS SUMMARY | 2025-01-10 18:01 | XMS_ITS | Clinical Summary ---
Author Organization [facility] Address [address] [place] [address] Care Team Providers Care Roller Checker Name Role Phone Pb Freitas MD Primary Care Provider +1- [phone] Allergies No known active allergies Medications ADDERALL XR 30 mg 24 hr capsule 07/21/2018 Activ e dextroamphetamine- amphetamine (ADDERALL) 20 mg tablet 07/21/2018 Active Active Problems No known active problems Encounters Date Type Department Care Team Description 12/26/2024 Telephone [facility] [address] [address] Marco A Leon MD Consult 12/14/2024 Orders Only [facility] [address] [address] Marco A Leon MD Personal history of latent tuberculosis infection (Primary Dx) from Last 3 Months Surgical History Surgery Date Site/Laterality Comments TONSILECTOMY, [...] on file 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
--- OUTSIDE RECORDS SUMMARY | 2025-01-10 18:01 | XMS_ITS | Referral Summary ---
Author Organization [facility] Building [facility] Address [address] [place] [address] Care Team Providers Care Civil Defense Director Name Role Phone Pb Freitas MD Primary Care Provider [phone]- [phone] Encounters Date Type Department Care Team Description 12/26/2024 Telephone [facility] [address] [address] Marco A Leon MD Consult 12/14/2024 Orders Only [facility] [address] [address] Marco A Leon MD Personal history of latent tuberculosis infection (Primary Dx) from Last 3 Months Allergies No known active allergies Medications ADDERALL [...] on file 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
--- OUTSIDE RECORDS SUMMARY | 2025-01-10 18:02 | XMS_ITS | Data Portability ---
[facility] [address] [place] [address] Care Team Providers Care Painter Barrel Name Role Phone TEOFILO ARRINGTON Primary Care Provider Unavailab le Assessment No assessment recorded. Plan of Treatment Reminders Order Date Submit Date Provider Last Modified By Organization Details Last Modified Time Details Appointments ANY 15 2024 03:30P M FRIEDA Romero Not available Not available Not available Lab None recorded. Referral infectiou s disease specialis t referral - pt tested positive on TB skin test and serum testing, over 5 years ago, never opted in for treatment yet 2024 025 [facility] Marco A Leon MD, [address] [facility], [address], [place], [address], 12/12/2024 17:10:42 psychiatr ist referral 2024 025 [facility], [facility], [address], [place], [address], 12/12/2024 17:05:31 Procedures None recorded. Surgeries None recorded. Imaging None recorded. Medication Orders pantopraz ole 40 mg tablet,de layed release 2024 025 [id number], [address] [place], [place], [id number], 12/12/2024 16:40:12 amlodipin e 2.5 mg tablet 2024 025 [facility][id number], [address] [facility], [place], [id number], 12/13/2024 00:20:28 Patient TargetsNo targets recorded. Patient InstructionsNo instructions recorded. Reason for Referral Infectious Disease Specialis t Referral for History of inactive tuberculosis pt tested positive on TB skin test and serum testing, over 5 years ago, never opted in for treatment yet Referring Physician: Teofilo Arrington, Internal Medicine, Encounter Date: 12/12/2024 Psychiatrist Referral for Ad ult attention deficit hyperactivity disorder Referring Physician: Teofilo Arrington, Internal Medicine, Encounter Date: 12/12/2024 Results Created Date Observation Date Name Description Value Unit Range Abnormal Flag Note LastModifiedBy Organization Detail LastModifiedTime 11/15/1911/15/2024 Hemog lobin A1c measu remen t devic e panel HGBA1C 5.7 HgbA1 C Not Available Not Available 12/12/2024 15:17:53 Result Notes None recorded. Problems Name Problem SNOMED Code Status Onset Date Resolution Date Notes Provider Name and Address Organization Details Recorded Time Body mass index 20-24 - normal 239465374 Active 2024 Thalia Leblanc MA null, [place] - [facility] 15:38:27 Benign essential hypertension 9934891 Active 2024 FRIEDA Romero Attn: Sea deng,[address] [facility], [place], [address], [place] [facility] 16:43:54 History of inactive tuberculosis 075479925 Active 2024 FRIEDA Romero Attn: Sea g,[address] [facility], [place], [address], [place] [facility] 5 16:44:19 Adult attention deficit hyperactivity disorder 222422730 Active 2024 FRIEDA Romero Attn: Cristinain g,[address] [facility], [place], [address], [place] [facility] 16:44:40 Long-term drug therapy Active 2024 FRIEDA Romero Attn: Sea deng,[address] , [place], [address], [facility] 16:45:14 Problem Notes None recorded. Procedures Surgical History Date Name Laterality Status Provider Name and Address Organization Details Recorded Time Tonsillectomy completed Thalia Leblanc MA [facility] 12/13/2024 09:45:37 Imaging Results None recorded. Procedure Notes None recorded. Medical Equipment None Reported. Allergies No known drug allergies Medications Name Sig Start Date Stop Date Status Note LastModified by Organization Details LastModified Time amlodipine 2.5 mg tablet Take 1 tablet every day by oral route. 2024 active Not Available Not Available Not Avai lable pantoprazol e 20 mg tablet,ailyn yed release Take 2 tablets every day by oral route. 12/12 completed Not Available Not Available Not Available ofloxacin 0.3 % ear drops INSTILL 5 DROP IN AFFECTED EAR TWICE DAILY FOR 7 DAYS 12/12 completed Not Available Not Available Not Available pantoprazol e 40 mg tablet,ailyn yed release TAKE 1 TABLET BY MOUTH EVERY DAY active Not Available Not Available No t Available dextroamphe tamine-amph etamine 20 mg tablet Take 1 tablet every day by oral route for 30 days. active Not Available Not Available No t Available dextroamphe tamine-amph etamine ER 30 mg 24hr capsule,ext end release Take 1 capsule every day by oral route for 30 days. active Not Available Not Available No t Available losartan 100 mg tablet TAKE 1 TABLET BY MOUTH EVERY DAY IN THE MORNING active Not Available Not Available No t Available Vitals Date Recorded Body weight Body mass index (BMI) Body height Oxygen saturation Oxygen saturation in Arterial blood by Pulse oximetry Heart rate Respiratory rate Systolic blood pressure Diastolic blood pressure Provider Name and Address Organization Details Last Updated DateTime 5 51178.2 1 g 24.7 kg/m2 195.58 cm 97 % 97 % 107 /min 18 /min 126 mm[Hg] 80 mm[Hg] Thalia Leblanc MA [facility] 15:40:17 Date Recorded Systolic blood pressure Diastolic blood pressure Provider Name and Address Organization Details Last Updated DateTime 12/12/2024 146 mm[Hg] 80 mm[Hg] FRIEDA Romero Attn: Accounting,[address] [facility], [place], [address], [place] [facility] 12/22/2024 16:43:53 Social History Question Answer Notes LastModified by Organizat ion Details LastModified Time Tobacco Smoking Status Never Smoker Thalia Leblanc [facility], [place] [facility] 12/12/2024 15:36:21 What Is Your Level Of Alcohol Consumption? Occasional Information not available 12/12/2024 Are You Blind Or Do You Have Difficulty Seeing? No Information not available 12/12/2024 What Is Your Level Of Caffeine Consumption? Occasional Information not available 12/12/2024 In The 14 Days Before Symptom Onset, Have You Had Close Contact With A Laboratory-confir med COVID-19 While That Case Was Ill? No Information not available 12/12/2024 In The 14 Days Before Symptom Onset, Have You Had Close Contact With A Person Who Is Under Investigation For COVID-19 While That Person Was Ill? No Information not available 12/12/2024 Have You Been To An Area Known To Be High Risk For COVID-19? No Information not available 12/12/2024 Are You Currently Employed? Yes Information not available 12/12/2024 Are You Deaf Or Do You Have Serious Difficulty Hearing? No Information not available 12/12/2024 What Type Of Diet Are You Following? REGULAR Information not available 12/12/2024 What Was The Date Of Your Most Recent Tobacco Screening? 12/12/2024 Information not available 12/12/2024 What Is Your Relationship Status? Information not available 12/12/2024 Do You Have Smoke And Carbon Monoxide Detectors In Your Home? Yes Information not available 12/12/2024 Do You Use Any Illicit Or Recreational Drugs? No Information not available 12/12/2024 Do You Use Sunscreen Routinely? Yes Prn- Summer Information not available 12/12/2024 Has Tobacco Cessation Counseling Been Provided? No Information not available 12/12/2024 Do You Or Have You Ever Used Any Other Forms Of Tobacco Or Nicotine? No Information not available 12/12/2024 Sex: Male Functional Status Question Answer Note LastModified by Organizat ion Details LastModified Time Are you able to care for yourself? Yes Information not available 12/12/2024 What is your exercise level? Occasional but active Information not available 12/12/2024 Mental Status None recorded. Family History Relationship Description Onset Age of this Age Resolved Age Notes LastModified by Organization Details LastModified Time Father Cerebrovascu lar accident [email or web address] Not available 16:38:23 Father Disorder of thyroid gland tcarterma Not available 2024 17:16:20 Father Hypertensive disorder tcarterma Not available 2024 17:16:26 Mother Diabetes mellitus tcarterma Not available 2024 17:16:13 Mother Disorder of thyroid gland tcarterma Not available 2024 17:16:20 Mother Hypertensive disorder tcarterma Not available 2024 17:16:26 Medical History Condition Response Coronary Artery Disease N Other N Atrial Fibrillation N High Blood Pressure N Thyroid Problems N Kidney or Bladder Problems N GI Problems N Depression N COPD N Blood Clots N Have you had a mammogram in the last yea r? N Skin Problems N Anemia N Heart Attack (ND) N Diabetes N Anxiety Disorder N Muscle, Joint, or Bone Problems N Seizures/Epilepsy N Have you had a colonoscopy in the last 1 0 years? N Acid Reflux (GERD) Y Cancer N Stroke N Asthma N Allergies N Have you had a PSA blood test in the las t year? N High Cholesterol N Hepatitis N Liver Disease N Headaches N Osteoporosis N Heart Failure N Immunizations Vaccine Type Date Status Note Provider Nam e and Address Organization Details Recorded Time COVID-19 vaccine, vector-nr, rS-Ad26, PF, 0.5 mL 1 completed Thalia Leblanc [place], [place] [facility] 12/12/2024 15:36:28 Tdap 6 completed Thalia Leblanc [place], [place] [facility] 12/12/2024 15:36:28 Tdap 3 completed Thalia Leblanc [place], [place] [facility] 12/12/2024 15:36:28 Influenza, split virus, trivalent, preservative 3 completed Thalia Leblanc MA [facility] - [facility] 12/12/2024 15:36:28 Past Encounters Encounter ID Performer Location Encounter Start Date Encounter Closed Date Diagnosis/Indication Diagnosis SNOMED-CT Code Diagnosis ICD10 Code Diagnosis Note [id number] FRIEDA Romero [facility] [place] [address] [place] [address] 12/12/2024 15:17:16 12/12/2024 16:59:07 Body mass index 20-24 - normal 319523833 Z68.24 BMI 24.7 History of inactive tuberculosis 031546637 Z86.15 For history of inactive tuberculos is noted with positive TB skin testing approximat medina 5 years ago with no treatment course completed. We will refer him to infectious disease specialist to follow protocol measures for treatment if indicated Benign ess ential hypertension 2123684 I10 Continue losartan 100 mg daily and add low-dose amlodipine 2.5 mg daily for tighter blood pressure control.pr essure is just above goal range Adult atte ntion deficit hyperactivity disorder 228980535 F90.9 Referred patient to local psychiatri st to take over management of stimulant he has been stable on Adderall ER 30 mg in the morning and Adderall short-acti ng 20 mg in the evening Gastroesop hageal reflux disease without esophagitis 968527122 K21.9 For acid reflux which is symptomati c more than not we will start him on a trial of pantoprazo le 40 mg daily. Long-term drug therapy 453747628 Z79.899 Follow-up appointmen t scheduled for February 07 Health Concerns Section Related Observation LastModified by Organization Detai ls LastModified Time None Recorded Concern Status LastModified by Organization Details LastModified Time None Recorded Advance Directives Directive None Recorded Payers Encounter Date Sequence Insurance Name Policy Number Policy Beverly Covered Member ID Beverly Member ID Guarantor Name 12/12/2024 1 [place] [id number] Niko Salazar [id number] Niko Salazar Notes Date Note Type Note Provider Name and Address Organization Details Recorded Time text/html HypertensionReported bypatient.Notes:Patient does have hypertension and takes losartan 100 mg daily but does still have an elevationReflux/GERDRepor seequiel bypatient.Notes:Patient is having acid reflux symptoms more often. He is not currently taking any medication Patient reports he has a history of inactive tuberculosis that was identified approximately 5 years ago and he saw the health department locally. It was suggested that he go ahead and undergo the long treatment process to treat inactive tuberculosis but he did not do that. He did have a clear chest x-ray. He brings this up today and wants to pursue anything that he should be doing for that FRIEDA Romero Attn: Accounting,[address] [facility], [place], [address], [facility] 12/22/2024 16:46:49
--- OUTSIDE RECORDS SUMMARY | 2025-01-10 18:02 | XMS_ITS | Encounter Summary ---
Author Organization [facility] Healthcare Address [address] [place] [address] Care Team Providers Care Banana Room Cutter Name Role Phone Pb Freitas MD Primary Care Provider [phone] Reason for Visit * Reason Onset Date Comments Consult 12/26/2024 Encounter Details Date Type Department Care Team (Late st Contact Info) Description 12/26/2024 Telephone [facility] [address] [place] [address] [phone] Marco A Leon MD [address] [place] [address] Consult Social History Tobacco Use Types Packs/Day Years Used Date Smoking Tobacco: Never Smokeless Tobacco: Never Personal Safety Answer Date Recorded Getting School Help Needed Not on file 12/05 Sex and Gender Information Value Date Recorded Sex Assigned at Not on file 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 Voicemail full * Telephone Encounter - Gabrielle No LPN - 12/30/2024 12:38 PM CDT Attempted to contact patient and unable to leave message to contact office. Voicemail full * Telephone Encounter - Gabrielle No LPN - 12/26/2024 2:24 PM CDT Patient tested positive over 5 years ago and opted to not treat. Office does not have results of test Per Dr. Rodriguez received referral message I need to see results before any recommendations. If patient agree please order QuantiFERON TB goldtesting prior to appointment VORBC: Ronna PETERSEN /Dr. Joe TREVIZO Attempted to contact patient and unable to leave message to contact office. Voicemail full documented in this encounter Plan of Treatment Not on file documented as of this encounter Visit Diagnoses Not on filedocumented in this encounter Care Teams Banana Room Cutter Relationship Specialty Start Date End Date Pb Freitas MD [address] [place] [address] [place] [address] PCP - General Family Medicine 08/02/18 documented as of this encounter
--- OUTSIDE RECORDS SUMMARY | 2025-01-10 18:02 | XMS_ITS | Clinical Summary ---
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 Gender Identity Not on file Sexual Orientation Not on file Last Filed Vital Signs Vital Sign Reading Time Taken Comments Blood Pressure 128/70 09/12/2020 1:53 PM RAILWAY SWITCHMAN Pulse 67 09/12/2020 1:53 PM RAILWAY SWITCHMAN Temperature 36.4 C (97.6 F) 09/12/2020 1:53 PM RAILWAY SWITCHMAN Respiratory Rate 20 08/06/2020 4:43 PM RAILWAY SWITCHMAN Oxygen Saturation 99% 09/12/2020 1:53 PM RAILWAY SWITCHMAN Inhaled Oxygen Concentration - - Weight - [...] patient's age to complete this topic Insurance [facility] Care Teams Cereal Chemist Relationship Specialty Start Date End Date Provider, Unknown UNKNOWN PCP - General 08/06/20
--- OUTSIDE RECORDS SUMMARY | 2025-01-10 18:02 | XMS_ITS | Clinical Summary ---
Author Organization [facility] [place] Address [address] [place] [address] Care Team Providers Care Agricultural Engineering Teacher Name Role Phone Unavailable Primary Care Provider [...] Description 01/12/2025 1:30 PM CDT Office Visit [facility] - [place] [address] [place] [address] Deborah Whatley MD [address] [place] [address] Health Maintenance Due Date Last Done Comments DTAP/TDAP/TD VACCINES (1 - Tdap) 11/28/2003 HEPATITIS B VACCINES (1 of 3 - 19+ 3-dose series) 11/28/2003 INFLUENZA VACCINE (#1) 2024 Preventative Visit- Commercial 09/21/2024 HPV VACCINES Aged Out No longer eligi ble based on patient's age to complete this topic Insurance [facility] BLUE ACCESS/TRUE BLUE PPO
--- OUTSIDE RECORDS SUMMARY | 2025-01-10 18:02 | XMS_ITS | Data Portability ---
Author Organization [facility] [employer], Main Office Address [address] [place] [address] Assessment No assessment recorded. Plan of Treatment Reminders Order Date Submit Date Provider Last Modified By Organization Details Last Modified Time Details Appointments None recorded. Lab amylase + lipase, serum [address] (Lab), [address] [place], [address], 5 11:10:17 CMP, serum or plasma 2024 025 [facility] (Lab), [address] [place], [address], 5 22:02:38 lipase, serum or plasma 2024 025 [facility] (Lab), [address] [place], [address], 5 22:02:43 hemoglobin A1C, fingerstic k 2024 025 [facility], [address] [place] [address], [address], 5 14:21:16 CMP, serum or plasma [address] (Lab), [address] [place], [address], 5 11:10:16 T4, free, serum 2024 025 [facility] (Lab), [address] [place], [address], 5 22:02:41 TSH, serum or plasma [address] (Lab), [address] [place], [address], 5 11:10:16 CBC w/ auto diff 2024 025 [facility] (Lab), [address] [place], [address], 5 22:02:39 urinalysis , dipstick, reflex micro [address] (Lab), [address] [place], [address], 5 11:10:17 glucose, fingerstic k, blood [address] [facility], [address] [place], [address], 5 11:10:17 amylase, serum or plasma 2024 025 [facility] (Lab), [address] [place], [address], 5 22:02:42 vitamin D3, 25-hydroxy , serum [address] (Lab), [address] [place], [address], 4 08:08:14 vitamin B12 + folate, serum or blood [address] (Lab), [address] [place], [address], 4 08:08:14 TSH, serum or plasma [address] (Lab), [address] [place], [address], 4 08:08:13 vitamin D, 25-hydroxy , total, serum [address] (Lab), [address] [place], [address], 4 08:08:13 lipid panel, serum 2023 024 [facility] (Lab), [address] [place], [address], 4 09:54:47 CMP, serum or plasma [address] (Lab), [address] [place], [address], 4 08:08:13 CK (creatine kinase), total, serum [address] (Lab), [address] [place], [address], 4 08:08:13 CBC w/ auto diff [address] (Lab), [address] [place], [address], 4 08:08:13 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 Please eval and treat. Thank you..famil y history pancreatic cancer. Please call patient to schedule an appointmen t. Thank you. 2024 025 NOLVIA Maldonado MD, [address] [facility] [address], [place], [address], 5 11:02:41 Procedures None recorded. Surgeries None recorded. Imaging US, abdomen [address] (Imaging), [address] [facility] [address], [place], [address], 5 12:41:18 XR, chest, 2 view [address] (Imaging), [address] [facility], [place], [address], 5 16:13:57 XR, chest, 2 view [id number] (Imaging), [address] [facility] [address], [place], [address], 4 08:51:42 Medication Orders Adderall XR 30 mg capsule,ex tended release 2024 025 [facility], [address] [place], [address], 5 15:17:55 Adderall 20 mg tablet 2024 025 [facility] [address], [address] [place], [address], 5 15:17:54 amlodipine 2.5 mg tablet 2024 025 [email or web address] [facility] [address], [address] [place], [address], 5 12:31:57 cyanocobal eden (vit B-12) 1,000 mcg sublingual tablet 2024 025 [facility] [address], [address] [place], [address], 5 16:10:57 losartan 100 mg tablet 2023 024 [facility]153, [address] [place], [place], [id number], 15:53:07 amlodipine 2.5 mg tablet 2023 [facility] #39493, 2 [facility], [place], [place], [id number], 15:53:06 Adderall 20 mg tablet 2023 [facility] #44511, 2 [facility], [place], [place], [id number], 15:56:57 losartan 100 mg tablet 2023 [facility] [address], [address] [place], [address], 13:00:29 Patient TargetsNo targets recorded. Patient Instructions Encounter Date Encounter Id Patient Instructions Last Modified By Organization Details Last Modified Time 03/15/2024 [id number] recheck BP on ow n ; reviewed salty foods to avoid , walk, which he does [email or web address] Not available 03/20/2024 17:12:21 07/21/2024 [id number] He will check BP at work and at home . has been taking BP pills at night , felt cold at work when he took them in the mornings , but misses a lot of doses ........ [email or web address] Not available 07/21/2024 16:02:08 10/25/2024 [id number] recheck BP on own [email or web address] Not avai lable 10/28/2024 22:47:20 11/15/2024 [id number] wear a jock stra p . no heavy lifting . 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 Unintentional weight loss unintentional weight [...] total 171 mg/dL <200 normal Not Available [address] [address] [place], [address], 08/07/2023 07:24:54 08/06/20 23 08/07/2023 LIPID PANEL (REFL ) HDL cholesterol 55 mg/dL > or = 40 normal Not Available [facility] [address] [address] [place], [address], 08/07/2023 07:24:54 08/06/2008/07/2023 LIPID PANEL (REFL ) triglyceride s 83 mg/dL <150 normal Not Available [address] [address] [place], [address], 08/07/2023 07:24:54 08/06/20 23 08/07/2023 LIPID PANEL (REFL ) LDL-choleste rol 99 mg/dL _(millicent c) normal Refer ence range : <100 Teresa able range <100 mg/dL for prima ry preve ntion ; <70 mg/dL for patie nts with CHD or diabe tic patie nts with > or = 2 CHD risk facto rs. LDL-C is now calcu lated using the [facility] kins kenanu jhonatan n, which is a valid ated novel teeo ilana renteria r accur acy than the Fried juarez equat ion in the estim ation of LDL-C . Solange barone SS et al. NIC. 2013; 310(1 9): 2061- 2068 (http ://ed ucati on.Qu Tahira viramontesThe University of North [place] at Chapel [facility]. com/f aq/FA Q164) Not Available [facility] [address] [address] , [place], [address], 08/07/2023 07:24:54 08/06/20 23 08/07/2023 LIPID PANEL (REFL ) chol/HDLC ratio 3.1 (calc ) <5.0 normal Not Available [facility] [address] [place], [address], 08/07/2023 07:24:54 08/06/2008/07/2023 LIPID PANEL (REFL ) non HDL cholesterol 116 mg/dL _(millicent c) <130 normal For patie nts with diabe michael plus 1 major ASCVD risk facto r, treat ing to a non-H DL-C goal of <100 mg/dL (LDL- C of <70 mg/dL ) is consi dered a thera peuti c optio n. Not Available [address], [address], 08/07/2023 07:24:54 08/06/2008/07/2023 COMPR EHENS BREE METAB OLIC PANEL glucose 93 mg/dL 65-99 normal Fasti ng refer ence inter migel Not Available [address], [address], 08/07/2023 07:24:55 08/06/20 23 08/07/2023 COMPR EHENS BREE METAB OLIC PANEL urea nitrogen (BUN) 9 mg/dL 7-25 normal Not Available [address], [address], 08/07/2023 07:24:55 08/06/20 23 08/07/2023 COMPR EHENS BREE METAB OLIC PANEL creatinine 1.01 mg/dL 0.60-1 .26 normal Not Available [address], [address], 08/07/2023 07:24:55 08/06/20 23 08/07/2023 COMPR EHENS BREE METAB OLIC PANEL eGFR 98 mL/mi n/1.7 3m2 > or = 60 normal Not Available [address] [address] [place], [address], 08/07/2023 07:24:55 08/06/20 23 08/07/2023 COMPR EHENS BREE METAB OLIC PANEL BUN/creatini ne ratio SEE NOTE: (calc ) 6-22 Not Repor esequiel: BUN and Creat inine are withi n refer ence range . Not Available [address] [address] [place], [address], 08/07/2023 07:24:55 08/06/20 23 08/07/2023 COMPR EHENS BREE METAB OLIC PANEL sodium 140 mmol/ L 135-14 6 normal Not Available [address] [address] [place], [address], 08/07/2023 07:24:55 08/06/20 23 08/07/2023 COMPR EHENS BREE METAB OLIC PANEL potassium 4.2 mmol/ L 3.5-5. 3 normal Not Available [address], [address], 08/07/2023 07:24:55 08/06/20 23 08/07/2023 COMPR EHENS BREE METAB OLIC PANEL chloride 104 mmol/ L 98-110 normal Not Available [address] [address] [place], [address], 08/07/2023 07:24:55 08/06/20 23 08/07/2023 COMPR EHENS BREE METAB OLIC PANEL carbon dioxide 29 mmol/ L 20-32 normal Not Available [address], [address], 08/07/2023 07:24:55 08/06/20 23 08/07/2023 COMPR EHENS BREE METAB OLIC PANEL calcium 9.3 mg/dL 8.6-10 .3 normal Not Available [address], [address], 08/07/2023 07:24:55 08/06/20 23 08/07/2023 COMPR EHENS BREE METAB OLIC PANEL protein, total 6.9 g/dL 6.1-8. 1 normal Not Available [facility] [address] [place], [address], 08/07/2023 07:24:55 08/06/2008/07/2023 COMPR EHENS BREE METAB OLIC PANEL albumin 4.6 g/dL 3.6-5. 1 normal Not Available [address] [address] [place], [address], 08/07/2023 07:24:55 08/06/20 23 08/07/2023 COMPR EHENS BREE METAB OLIC PANEL globulin 2.3 g/dL_ (calc ) 1.9-3. 7 normal Not Available [address] [address] [place], [address], 08/07/2023 07:24:55 08/06/20 23 08/07/2023 COMPR EHENS BREE METAB OLIC PANEL albumin/glob ulin ratio 2.0 (calc ) 1.0-2. 5 normal Not Available [address] [address] [place], [address], 08/07/2023 07:24:55 08/06/2008/07/2023 COMPR EHENS BREE METAB OLIC PANEL bilirubin, total 1.5 mg/dL 0.2-1. 2 high Not Available [address] [address] [place], [address], 08/07/2023 07:24:55 08/06/20 23 08/07/2023 COMPR EHENS BREE METAB OLIC PANEL alkaline phosphatase 70 U/L 36-130 normal Not Available [facility] [employer] [address] [address] [place], [address], 08/07/2023 07:24:55 08/06/20 23 08/07/2023 COMPR EHENS BREE METAB OLIC PANEL AST 21 U/L 10-40 normal Not Available [address] [address] [place], [address], 08/07/2023 07:24:55 08/06/20 23 08/07/2023 COMPR EHENS BREE METAB OLIC PANEL ALT 29 U/L 9-46 normal Not Available [employer] [facility] [address] [place], [address], 08/07/2023 07:24:55 11/15/19 25 11/15/2024 hemog lobin A1C, finge rstic k HgbA1C 5.7 Not Available [facility] [address] [facility], [place], [address], 11/15/2024 12:38:00 04/22/20 24 04/22/2024 XR, chest , 2 view No observ ation record ed. [email or web address] [facility] [address] [place], [address], 06/16/2024 16:14:30 11/17/19 25 11/17/2024 US, abdom en, compl ete No observ ation record ed. [email or web address] [facility] [address] [address], [place], [address], 11/29/2024 16:13:15 11/17/19 25 11/17/2024 US, abdom en, compl ete No observ ation record ed. [email or web address] [facility] [address] [place] [address], [place], [address], 11/22/2024 16:53:13 Result Notes None recorded. Problems Name Problem SNOMED Code Status Onset Date Resolution Date Notes Provider Name and Address Organization Details Recorded Time Biceps tendiniti s 976117893 Active Not Available [facility] 3 15:47:04 Undiffere ntiated attention deficit disorder 64134955 Active Not Available [facility] 3 15:47:04 Gastroeso phageal reflux disease 332774794 Active Not Available [employer] 3 15:47:04 Attention deficit hyperacti vity disorder, predomina ntly inattenti ve type 93643748 Active Not Available [facility] 3 15:47:04 Attention deficit hyperacti vity disorder 288446323 Active Not Available [facility] 3 15:47:04 Adult attention deficit hyperacti vity disorder 518854687 Active Not Available [facility] 3 15:47:04 Hypoglyce blayne 205432392 Active 2022 Not Available [facility] 3 15:47:04 Acid reflux 689386117 Active 2022 Pb Freitas MD [address], [address], [place], [address] , [facility] 3 12:05:59 Hyperlipi demia 97448669 Active 2022 Pb Freitas MD [address], [address], [place], [address] , [facility] 3 12:25:13 Tuberculo sis screening Active 2023 FRIEDA Gallego [address], [address], [place], [address] , [facility] 4 12:54:35 Essential hypertens ion 94875054 Active 2023 FRIEDA Gallego [address], [address], [place], [address] , [facility] 4 12:56:03 Dysfuncti on of bilateral eustachia n tubes 67160272043 [address] Active 2023 FRIEDA Gallego [address], [address], [place], [address] , [facility] 4 17:11:09 Unintenti onal weight loss 750033918 Active 2023 FRIEDA Gallego [address], [address], [place], [address] , [facility] 4 15:48:25 At increased risk for nutrition al problem 589024574 Active 2023 FRIEDA Gallego [address], [address], [place], [address] , [facility] [employer] [facility] [employer] 4 15:54:53 Vitamin B12 level below reference range 656406015 Active 2023 FRIEDA Gallego [address], [address], [place], [address] , [facility] [employer] [facility] [employer] [facility] 4 12:26:17 Serum vitamin B12 below reference range 134413227 Active 2024 FRIEDA Gallego [address], [address], [place], [address] , [facility] [employer] [facility] [employer] 5 16:09:47 Abnormal weight 68818634 Active 2024 Joselin Hunter RN [facility] [place] [employer] [facility] [employer] 5 12:30:43 Abdominal pain 08154485 Active 2024 FRIEDA Gallego [address], [address], [place], [address] , [facility] [employer] [facility] [employer] [facility] 5 12:43:33 Right inguinal hernia 316800779 Active 2024 self reducing FRIEDA Gallego [address], [address], [place], [address] , [employer] [facility] [employer] [facility] 5 12:58:54 Splenomeg olga 23465102 Active 2024 FRIEDA Gallego [address], [address], [place], [address] , [facility] [employer] [facility] [employer] [facility] 5 10:23:20 Problem Notes None recorded. Procedures Surgical History None recorded. Imaging Results Imaging Date Name Status LastModified by [facility]iz [facility] Details LastModified Time 04/22/2024 XR, chest, 2 view completed [email or web address] [facility], [place], [address], 06/16/2024 16:14:30 11/17/2024 US, abdomen, complete active [address] [facility] [address] [facility] [address], [place], [address], 11/29/2024 16:13:15 11/17/2024 US, abdomen, complete completed [email or web address] [facility] [address] [facility] [address], [place], [address], 11/22/2024 16:53:13 Procedure Notes None recorded. Medical Equipment None Reported. Allergies No known drug allergies Medications Name Sig Start Date Stop Date Status Note LastModified by Organization Details LastModified Time Adderall 20 mg tablet Take 1 tablet every day by oral route. 2024 active Not Available Not Available Not Avai lable azithromyci n 250 mg tablet TAKE 2 TABLETS BY MOUTH TODAY, THEN TAKE 1 TABLET DAILY FOR 4 DAYS active Not Available Not Available No t Available benzonatate 200 mg capsule Take 1 capsule 3 times a day by oral route as needed. active Not Available Not Available No t Available bacitracin 500 unit/gram eye ointment 08/24 completed Not Available Not Available Not Available promethazin e 25 mg rectal suppository Insert 1 supposito ry 3 times a day by rectal route. active Not Available Not Available No t Available Tubersol 5 tub. unit/0.1 mL intradermal injection solution Inject 0.1 mL by intraderm al route. 08/24 completed Not Available Not Available Not Available amlodipine 2.5 mg tablet TAKE 1 TABLET BY MOUTH EVERY DAY active Not Available Not Available No t Available omeprazole 40 mg capsule,del ayed release Take 1 capsule every day by oral route active Not Available Not Available No t Available triamcinolo ne acetonide 0.1 % topical cream Apply 1 applicati on twice a day by topical route for 30 days. active Not Available Not Available No t Available Adderall XR 30 mg capsule,ext ended release TAKE 1 CAPSULE BY MOUTH EVERY DAY 2024 active Not Available Not Available Not Avai lable ofloxacin 0.3 % ear drops INSTILL 5 DROP IN AFFECTED EAR TWICE DAILY FOR 7 DAYS 03/15 completed Not Available Not Available Not Available cephalexin 500 mg capsule 08/24 completed Not Available Not Available Not Available pantoprazol e 40 mg tablet,ailyn yed release TAKE 1 TABLET BY MOUTH EVERY DAY active Not Available Not Available No t Available oseltamivir 75 mg capsule TK 1 C PO QD FOR 10 DAYS 10/22 completed Not Available Not Available Not Available clotrimazol e-betametha sone 1 %-0.05 % topical cream APPLY TOPICALLY TO THE AFFECTED AND SURROUNDI NG AREAS TWICE DAILY IN THE MORNING AND IN THE EVENING FOR 2 WEEKS 12/31 completed Not Available Not Available Not Available prednisone 50 mg tablet 08/24 completed Not Available Not Available Not Available cyanocobala min (vit B-12) 1,[address] 1 tablet twice a day by sublingua l route for 30 days. 2024 active Not Available Not Available Not Avai lable losartan 100 mg tablet TAKE 1 TABLET BY MOUTH EVERY DAY IN THE MORNING active Not Available Not Available No t Available Amphetamine Salt Combo 20 mg tablet TAKE 1 TABLET active Not Available Not Available No t Available [employer] Tdap 2.5 Lf unit-8 mcg-5 Lf/0.5 mL intramuscul ar syringe 08/24 completed Not Available Not Available [...] Updated DateTime 3 193.04 cm 27.6 kg/m2 090330. 47 g 98 [degF] 96 /min 99 % 99 % 132 mm[Hg] 84 mm[Hg] Phoebe Pinto MA [email or web address] 3 16:16:34 Date Recorded Body height Body mass index (BMI) Body weight Body temperature Heart rate Oxygen saturation Oxygen saturation in Arterial blood by Pulse oximetry Respiratory rate Systolic blood pressure Diastolic blood pressure Systolic blood pressure Diastolic blood pressure Provider Name and Address Organization Details Last Updated DateTime 4 193.04 cm 26.3 kg/m2 36778.9 5 g 98.3 [degF] 103 /min 99 % 99 % 16 /min 160 mm[Hg] 110 mm[Hg] 152 mm[Hg] 102 mm[Hg] Judith Neff RN [email or web address] 4 12:42:39 Date Recorded Body height Body mass index (BMI) Body weight Body temperature Heart rate Oxygen saturation Oxygen saturation in Arterial blood by Pulse oximetry Systolic blood pressure Diastolic blood pressure Provider Name and Address Organization Details Last Updated DateTime 4 193.04 cm 25.6 kg/m2 04703.4 g 98.3 [degF] 102 /min 99 % 99 % 128 mm[Hg] 102 mm[Hg] Judith Neff RN [facility] [employer] [facility] 4 15:39:34 Date Recorded Body height Body mass index (BMI) Body weight Body temperature Heart rate Oxygen saturation Oxygen saturation in Arterial blood by Pulse oximetry Systolic blood pressure Diastolic blood pressure Provider Name and Address Organization Details Last Updated DateTime 5 193.04 cm 26.1 kg/m2 12417.8 4 g 98.1 [degF] 92 /min 97 % 97 % 130 mm[Hg] 88 mm[Hg] Joselin Hunter RN [facility] [employer] [facility] 5 15:56:54 Date Recorded Body height Body mass index (BMI) Body weight Body temperature Heart rate Oxygen saturation Oxygen saturation in Arterial blood by Pulse oximetry Systolic blood pressure Diastolic blood pressure Provider Name and Address Organization Details Last Updated DateTime 5 193.04 cm 24.3 kg/m2 31634.7 6 g 97.9 [degF] 98 /min 98 % 98 % 136 mm[Hg] 94 mm[Hg] Joselin Hunter RN [facility] [employer] [facility] 5 12:33:59 Social History Question Answer Notes LastModified by Organizat ion Details LastModified Time Tobacco Smoking Status Never Smoker Judith Neff RN [facility] [employer] [facility] 03/15/2024 12:38:44 What Is Your [...] SNOMED-CT Code Diagnosis ICD10 Code Diagnosis Note [id number] [facility] [place] [address] [facility] [place] [address] 01/24/2022 00:00:00 01/25/2022 18:26:21 [id number] [facility] [place] [address] [facility] [place] [address] 07/09/2022 00:00:00 07/09/2022 18:56:41 [id number] [facility] [place] [address] [place] [address] [place] [address] 07/28/2022 00:00:00 07/28/2022 14:57:04 [id number] Pb Freitas MD [facility] [place] [address] [place] [address] [place] [address] 12/31/2022 17:02:34 01/01/2023 07:48:26 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 [id number] Pb Freitas MD [facility] [place] [address] [place] [address] [place] [address] 02/19/2023 15:56:36 02/19/2023 16:20:12 Adult health examination 928735234 Z00.00 Hypoglycemia 415580190 E 16.2 Eat Q 2 hours [id number] FRIEDA Gallego [facility] [place] [address] [place] [address] [place] [address] 09/02/2023 16:08:36 09/02/2023 16:47:26 Acid reflux 031169621 K21.9 Attention deficit hyperactivity disorder, predominantly inattentive type 27117717 F90.0 Hyperlipidemia 45839596 E78.5 Hypoglycemia 395757669 E 16.2 [id number] FRIEDA Gallego [facility] [place] [address] [place] [address] [place] [address] 03/15/2024 12:21:34 03/15/2024 12:58:27 Tuberculosis screening 383759164 Z11.7 Essential hypertension 19683851 I10 Attention deficit hyperactivity disorder, predominantly inattentive type 23358837 F90.0 Dysfunctio n of bilateral eustachian tubes 1249506779 876547 H69.93 [id number] FRIEDA Gallego [facility] [address] [facility] [place] [address] 07/21/2024 15:28:47 07/21/2024 15:58:21 Unintentional weight loss 487419185 R63.4 Essential hypertension 02453740 I10 Hyperlipidemia 50420016 E78.5 At [facility] risk for nutritional problem 098475339 Z91.89 Attention deficit hyperactivity disorder, predominantly inattentive type 24503808 F90.0 Gastroesop hageal reflux disease 148792344 K21.9 Vitamin B1 2 level below reference range 736262771 R79.9 [id number] FRIEDA Gallego [address] [address] 10/25/2024 15:46:27 10/25/2024 16:15:29 Essential hypertension 87751607 I10 Vitamin B1 2 level below reference range 236593171 R79.9 Gastroesop hageal reflux disease 939639288 K21.9 [id number] FRIEDA Gallego [address] [address] 11/15/2024 12:28:02 11/15/2024 12:53:13 Abnormal weight 56165429 R63.4 Unintentio nal weight loss 463722505 R63.4 Abdominal pain 26701664 R10.9 Right inguinal hernia 23 7553983 K40.90 self reducing Attention deficit hyperactivity disorder, predominantly inattentive type 75559365 F90.0 Health Concerns Section Related Observation LastModified by Organization Detai ls LastModified Time None Recorded Concern Status LastModified by Organization Details LastModified Time None Recorded Advance Directives Directive None Recorded Payers Encounter Date Sequence Insurance Name Policy Number Policy Beverly Covered Member ID Beverly Member ID Guarantor Name 09/02/2023 1 [place] [id number] Niko Salazar [id number] Niko Salazar 03/15/2024 1 [place] [id number] Niko Salazar [id number] Niko Salazar 07/21/2024 1 [place] (PPO) [id number] Niko Salazar [id number] Niko Salazar 10/25/2024 1 [place] ([place]) [id number] Niko Salazar [id number] Niko Salazar 11/15/2024 1 [place] [id number] Niko Salazar [id number] Niko Salazar Notes Date Note Type Note Provider Name and Address Organization Details Recorded Time 09/02/2023 text/html Here for f/u FRIEDA Gallego [address], [place], [address], [facility] 09/14/2023 18:08:37 03/15/2024 text/html right ear fullnesss FRIEDA Gallego [address], [address], [place], [address], [facility] 03/20/2024 17:12:28 07/21/2024 text/html missing doses of BP meds. headaches temples ; excedrin migraine works FRIEDA Gallego [address], [address], [place], [address], [facility] 08/15/2024 16:32:08 10/25/2024 text/html is not taking th e 2.5 mg dose of amlodipine . FRIEDA Gallego [address], [address], [place], [address], [facility] 10/28/2024 22:47:37 11/15/2024 text/html worried about hi s weight . some pulling on right testicle , it is sitting higher than left . Under a lot of stress at work . FRIEDA Gallego [address] [facility], [facility] [address], [place], [address], [facility] [employer] 11/21/2024 09:29:18
[2025-01-11 18:49] LABS: HIV 1 2 Ag Ab 4th Gen w Rflxs NON-REACTIVE (NON-REACTIVE)
[2025-01-11 19:44] LABS: Haptoglobin 145 mg/dL (43-212)
[2025-01-13 13:23] LABS: NIL 0.01 IU/mL; Quantiferon TB Plus, 1T POSITIVE (NEGATIVE); TB1-NIL 0.73 IU/mL; TB2-NIL 0.71 IU/mL
== END 2025-01-10 16:08 | disposition home or self-care (01) ==
LOC: ANHLAB 16:09
PROVIDERS: PCP Physician Assistant; Visit Provider Nurse Practitioner
DX: E80.6 Other disorders of bilirubin metabolism (principal); R63.4 Abnormal weight loss; R68.81 Early satiety; R63.0 Anorexia
CPT/HCPCS: 36415; 80074; 82728; 83010; 83615; 85046; 86480; 87389